=== PATIENT | female | born 1975 ===

== ENCOUNTER → 2017-05-25 | Outpatient (REF) | payer OTHER | LOC: M SFHCLERA 11:31 | DX: R11.0 Nausea (principal); R42 Dizziness and giddiness ==

== ENCOUNTER → 2018-06-15 | Outpatient (CLI) | payer OTHER ==
--- NOTE | 2018-06-15 12:36 | REP ---
Cervical spine radiographs: Eight views. History: Dizziness and giddiness. Neck pain. Findings: Lateral views done in flexion/extension and neutral position show vertebral body heights are preserved and alignment is normal. No subluxation or instability is seen. Prevertebral soft tissues are unremarkable. Oblique radiographs demonstrate intact neural foramina bilaterally at each cervical level and normally aligned facets. AP and open mouth odontoid views are unremarkable. Swimmer's lateral view shows no additional abnormality. Impression: Normal cervical spine radiographs. Electronically Signed by Andre Melvin MD 06/15/2018 12:28 P
== END ==
LOC: M WUC 11:48
PROVIDERS: ATTEND Physician Assistant
DX: M54.2 Cervicalgia (principal); R42 Dizziness and giddiness

== ENCOUNTER → 2019-11-10 | Outpatient (CLI) | payer OTHER ==
--- NOTE | 2019-11-10 09:58 | REP ---
Clinical: Right foot pain Technique: AP, lateral, bilateral oblique views right foot . Findings: The osseous structures and joint spaces are intact and normal. There is no evidence for acute fracture or dislocation. Surrounding soft tissues are unremarkable. No subcutaneous emphysema or radiodense foreign body. Impression: Age-appropriate right foot series. No acute fracture or dislocation. Electronically Signed by Chuck Ham MD 11/10/2019 09:50 A
== END ==
LOC: M WUC 09:25
PROVIDERS: ATTEND Physician Assistant
DX: M79.671 Pain in right foot (principal)